=== PATIENT | female | born 1980 | race Two or more races ===

== ENCOUNTER 2020-09-05 11:33 | Inpatient (IN) | payer OTHER ==
[~2020-09-05] VITALS: Ht 170.2 cm; Wt 172.4 kg
[2020-09-10] MEDS ORDERED: METFORMIN HCL500 M4 (08:33)
[2020-09-10] MEDS ORDERED: RAMELTEON8 MG (08:34)
[2020-09-10] MEDS ORDERED: TRAZODONE HCL100 MG (08:34)
[2020-09-10] MEDS ORDERED: ROSUVASTATIN CA10 MG (08:34)
[2020-09-10] MEDS ORDERED: OMEPRAZOLE20 MG (08:34)
[2020-09-10] MEDS ORDERED: CLARITHROMYCIN500 MG (08:34)
[2020-09-10] MEDS ORDERED: AMOXICILLIN500 MG (08:34)
== END 2020-09-11 14:35 | disposition left against medical advice (07) | DRG 637 ==
LOC: ER 11:33 → ICU-2 22:11 → ICU 22:11
PROVIDERS: ADMIT Internal Medicine; ATTEND Internal Medicine
PROC: 02HV33Z Insertion of Infusion Device into Superior Vena Cava, Percutaneous Approach (ICD-10-PCS; principal; 2020-09-06)
PROC: B24BZZZ Ultrasonography of Heart with Aorta (ICD-10-PCS; 2020-09-06)
DX: E11.10 Type 2 diabetes mellitus with ketoacidosis without coma (principal); K85.80 Other acute pancreatitis without necrosis or infection; G93.41 Metabolic encephalopathy; R65.21 Severe sepsis with septic shock; A41.9 Sepsis, unspecified organism; E87.0 Hyperosmolality and hypernatremia; N17.8 Other acute kidney failure; E86.0 Dehydration; E66.01 Morbid (severe) obesity due to excess calories; Z91.14 Patient's other noncompliance with medication regimen; J10.1 Influenza due to other identified influenza virus with other respiratory manifestations; D69.59 Other secondary thrombocytopenia; Z20.822 Contact with and (suspected) exposure to COVID-19